=== PATIENT | male | born 1965 | race Caucasian/White ===

== ENCOUNTER 2023-01-10 14:54 | Emergency (ER) | payer OTHER ==
[~2023-01-10] VITALS: Ht 185.4 cm; Wt 103.9 kg
[2023-01-10 14:58] VITALS: BP_SYST 117; PULSE 72; RESP 18; TEMP 97.9; O2SAT 99
--- NOTE | 2023-01-10 15:06 | NUR ---
Placed in room 05 . Placed on manager cardiac cath, blood pressure machine and pulse oximeter. To gown for exam. Side rails up. Report given to RADHA THOMPSON.
--- NOTE | 2023-01-10 15:08 | NUR ---
Pt brought by Humphrey [email or web address], pt presents to ER with episode of syncope episode, N/V while he was reading a book , witnessed episode, patient does not recall event, pt states he has not been eating well today, skin pink and warm, cap refill <3, respirations even and unlabored, will cont to monitor.
--- NOTE | 2023-01-10 15:30 | NUR ---
Dr Thomson evaluating patient at bedside
[2023-01-10] MEDS ORDERED: NACL 0.9% 1,000 ML IV ONE (15:45)
[2023-01-10 16:06] LABS: BASOPHILS % (AUTO) 0.3 % (0.0-2.0); EOSINOPHILS # (AUTO) 0.1 K/uL (0.0-0.4); EOSINOPHILS % (AUTO) 0.8 % (0.0-4.0); HEMOGLOBIN 13.8 g/dL (14.0-18.0); LYMPHOCYTES # (AUTO) 1.6 K/uL (1.0-5.5); LYMPHOCYTES % (AUTO) 20.5 % (20.5-51.5); MEAN CORPUSCULAR HEMOGLOBIN 32 pg (27-31); MEAN CORPUSCULAR HGB CONC 34 % (32-36); MEAN CORPUSCULAR VOLUME 95 fL (79.0-98.0); MONOCYTES # (AUTO) 0.5 K/uL (0.0-1.0); NEUTROPHILS # (AUTO) 5.8 K/uL (1.8-7.7); NEUTROPHILS % (AUTO) 72.4 % (40.0-70.0); PLATELET COUNT (AUTO) 190 K/uL (130-430); RED BLOOD CELL COUNT(AUTO) 4.32 MIL/uL (4.2-6.2)
[2023-01-10 16:09] LABS: ANION GAP 7 (5-15); CALCIUM 8.7 mg/dL (8.4-11.0); CHLORIDE 102 mmol/L (98-107); CREATININE 1.54 mg/dL (0.55-1.30); GFR AFRICAN AMERICAN 60 mL/min (>90); GLUCOSE 155 mg/dL (74-106); UREA NITROGEN, BLOOD 25 mg/dL (8-21)
[2023-01-10 16:16] LABS: ALANINE AMINOTRANSFERASE 29 U/L (12-78); ALBUMIN 3.9 g/dL (3.4-4.8); ASPARTATE AMINOTRANSFERASE 17 U/L (10-37); PHOSPHORUS 4.1 mg/dL (2.7-4.5); TOTAL BILIRUBIN 0.7 mg/dL (0.0-1.0)
--- NOTE | 2023-01-10 16:26 | NUR ---
Pt A&Ox4, VSS, respirations even and unlabored.
[2023-01-10 17:44] VITALS: BP_SYST 117; PULSE 72; RESP 18; TEMP 97.9; O2SAT 99
--- NOTE | 2023-01-10 17:44 | NUR ---
Patient given written and verbal discharge instructions and verbalizes understanding. ER MD discussed with patient the results and treatment provided. Patient in stable condition. ID arm band removed. No Rx given. Patient educated on pain management and to follow up with PMD. Pain Scale 2/10. Opportunity for questions provided and answered. Medication side effect fact sheet provided.
== END 2023-01-10 17:44 | disposition home or self-care (01) ==
LOC: SED 14:54
DX: R55 Syncope and collapse (principal); E86.0 Dehydration; N17.9 Acute kidney failure, unspecified; I95.9 Hypotension, unspecified; T50.995A Adverse effect of other drugs, medicaments and biological substances, initial encounter; E11.9 Type 2 diabetes mellitus without complications; I10 Essential (primary) hypertension; E78.5 Hyperlipidemia, unspecified; Z79.899 Other long term (current) drug therapy; Y92.89 Other specified places as the place of occurrence of the external cause
CPT/HCPCS: 99285; 96360; 71045; 80053; 82550; 83735; 84100; 85025; 84484; 36415; 93005; J7030